=== PATIENT | female | born 1995 | race Caucasian/White ===

== ENCOUNTER 2018-07-14 09:50 | Inpatient (IN) | payer OTHER ==
[2018-07-14 11:13] LABS: BASO % 0.1 % (0.0-1.0); EOS % 0.3 % (0.0-3.0); HEMATOCRIT 29.4 % (36.0-47.0); HEMOGLOBIN 9.6 g/dl (12.0-15.5); IMMATURE GRANULOCYTE % 0.9 % (0-3.0); LYMPH # 1.1 10^3/uL (1.5-6.5); LYMPH % 16.1 % (24.0-44.0); MEAN CORPUSCULAR HEMOGLOBIN 29.3 pg (27.0-33.0); MEAN CORPUSCULAR HGB CONC 32.7 g/dl (32.0-36.5); MEAN CORPUSCULAR VOLUME 89.6 fl (80.0-96.0); MONO # 0.5 10^3/uL (0.0-0.8); MONO % 7.3 % (0.0-5.0); NEUTROPHILS # 5.2 10^3/uL (1.8-7.7); NEUTROPHILS % 75.3 % (36.0-66.0); PLATELET COUNT, AUTOMATED 198 10^3/uL (150-450); RED BLOOD COUNT 3.28 10^6/uL (4.00-5.40); RED CELL DISTRIBUTION WIDTH 16.3 % (11.5-14.5)
[2018-07-14] MEDS: LR 1,000 ML IV (11:41)
[2018-07-14] MEDS: miSOPROStol 50 MCG 1/2 TAB (S0191) PO (12:34)
[2018-07-14] MEDS: miSOPROStol 25 MCG 1/4 TAB (S0191) PO (19:30)
[2018-07-15] MEDS: PROMETHAZINE INJ 25 MG/ML VIAL (J2550) IV (01:10)
[2018-07-15] MEDS: NALBUPHINE HCL 10 MG/ML AMP (J2300) IM (01:11)
[2018-07-15] MEDS: NALBUPHINE HCL 10 MG/ML AMP (J2300) IV (01:11)
[2018-07-15] MEDS: OXYTOCIN DRIP 30 UNITS in APPROPRIATE DILUENT 1 EA IV (07:28)
[2018-07-15] MEDS: LR 1,000 ML IV ×2 (07:28→13:00)
[2018-07-15] MEDS: BUTORPHANOL 2 MG/ML INJ (J0595) IV (12:31)
[2018-07-15] MEDS ORDERED: FENTANYL 2MCG/ML ROPIVACAINE 0.2% IN 0.9% NACL 200ML IVBAG As Ordered (15:16)
[2018-07-15] MEDS: FENTANYL/ROPIVACAINE/NACL BAG 200 ML EPIDURAL (15:47)
[2018-07-15] MEDS ORDERED: diphenhydrAMINE INJ 50MG/ML VIAL (J1200) IV (16:15)
[2018-07-15] MEDS ORDERED: ePHEDrine SULFATE 25 MG/5 ML(5MG/ML) SYRINGE IV (16:15)
[2018-07-15] MEDS ORDERED: NALOXONE INJ 0.4 MG/1 ML VIAL (J2310) IV (16:15)
[2018-07-15] MEDS ORDERED: LACTATED RINGER'S 1000 ML IV (16:15)
[2018-07-15] MEDS ORDERED: EPIDURAL/PCA KEYS XX (16:15)
[2018-07-15] MEDS ORDERED: EPIDURAL COMMENT XX (16:15)
[2018-07-15] MEDS ORDERED: REFRIGERATOR IV KEYS XX (16:15)
[2018-07-15] MEDS ORDERED: ONDANSETRON 4MG/2ML VIAL (J2405) IV (16:15)
[2018-07-16] MEDS: LR 1,000 ML IV ×2 (00:06→10:06)
[2018-07-16] MEDS ORDERED: ACETAMINOPHEN 500 MG TAB As Ordered (00:15)
[2018-07-16] MEDS: ACETAMINOPHEN 500 MG TAB PO (00:18)
[2018-07-16] MEDS ORDERED: BICITRA 30ML SOLN UDC As Ordered (01:57)
[2018-07-16] MEDS ORDERED: ceFAZolin 2 GM/D5W 50 ML IV BAG (J0690 PER 500MG) As Ordered (01:57)
[2018-07-16] MEDS: BICITRA 30ML SOLN UDC PO (02:06)
[2018-07-16] MEDS ORDERED: EPINEPHrine INJ 1 MG/ML 1ML AMP As Ordered (02:10)
[2018-07-16] MEDS ORDERED: OXYTOCIN INJ 10 UNITS/ML VIAL (J2590) As Ordered ×8 (02:10→03:21)
[2018-07-16] MEDS ORDERED: LIDOCAINE PRES-FREE 2% 10ML AMP As Ordered ×2 (02:10)
[2018-07-16] MEDS ORDERED: MORPHINE PRES-FREE INJ 10 MG/10 ML VIAL (J2274) As Ordered (02:24)
[2018-07-16] MEDS ORDERED: dexameTHASONE 4 MG/ML 1ML VIAL (J1100) As Ordered (02:25)
[2018-07-16] MEDS ORDERED: ONDANSETRON 4MG/2ML VIAL (J2405) As Ordered ×2 (02:25→03:30)
[2018-07-16] MEDS ORDERED: MIDAZOLAM INJ 2 MG/2 ML VIAL (J2250) As Ordered ×2 (02:43→03:35)
[2018-07-16] MEDS ORDERED: KETOROLAC 60 MG/2 ML VIAL (J1885) As Ordered (02:53)
[2018-07-16] MEDS ORDERED: KETAMINE HCL 200 MG/20 ML VIAL As Ordered (03:01)
[2018-07-16] MEDS ORDERED: METOCLOPRAMIDE INJ 10MG/2ML VIAL (J2765) IV (03:38)
[2018-07-16] MEDS ORDERED: NALBUPHINE HCL 10 MG/ML AMP (J2300) IV ×2 (03:38→04:45)
[2018-07-16] MEDS ORDERED: NALOXONE INJ 0.4 MG/1 ML VIAL (J2310) IV ×2 (03:38)
[2018-07-16] MEDS ORDERED: ONDANSETRON 4MG/2ML VIAL (J2405) IV ×2 (03:38→04:45)
[2018-07-16] MEDS ORDERED: PHENYLephrine HCL 500 MCG/5 ML (100MCG/ML) SYRINGE (J2370) As Ordered (04:02)
[2018-07-16 04:05] LABS: CORD GAS ABE V -2.8; CORD GAS HCO3 V 22.5 MEQ/L; CORD GAS O2 SAT V 59.4 %; CORD GAS PCO2 V 41.4 mmHg; CORD GAS PH V 7.354 UNITS; CORD GAS PO2 V 25.3 mmHg; CORD GAS SBC V 21.2 MEQ/L; CORD GAS TCO2 V 23.8 MEQ/L
[2018-07-16 04:08] LABS: CORD GAS ABE A -2.1; CORD GAS HCO3 A 25.2 MEQ/L; CORD GAS O2 SAT A 21.4 %; CORD GAS PCO2 A 53.3 mmHg; CORD GAS PH A 7.292 UNITS; CORD GAS PO2 A 13.2 mmHg; CORD GAS TCO2 A 26.8 MEQ/L
[2018-07-16 04:09] LABS: CORD GAS ABE V -2.4; CORD GAS HCO3 V 23.2 MEQ/L; CORD GAS O2 SAT V 62.3 %; CORD GAS PCO2 V 42.8 mmHg; CORD GAS PH V 7.352 UNITS; CORD GAS PO2 V 25.7 mmHg; CORD GAS SBC V 21.6 MEQ/L; CORD GAS TCO2 V 24.5 MEQ/L
[2018-07-16 04:11] LABS: CORD GAS ABE A -1.7; CORD GAS HCO3 A 23.9 MEQ/L; CORD GAS O2 SAT A 63.7 %; CORD GAS PCO2 A 43.6 mmHg; CORD GAS PH A 7.357 UNITS; CORD GAS PO2 A 26.4 mmHg; CORD GAS SBC A 22.2 MEQ/L; CORD GAS TCO2 A 25.3 MEQ/L
[2018-07-16] MEDS ORDERED: LR 1,000 ML IV (04:28)
[2018-07-16] MEDS ORDERED: MEASLES,MUMPS,RUBELLA VACCINE INJ (MMR-II) (90707) SC (04:30)
[2018-07-16] MEDS ORDERED: LOPERAMIDE 2 MG CAP PO (04:30)
[2018-07-16] MEDS: LOPERAMIDE 2 MG CAP PO (04:30)
[2018-07-16] MEDS ORDERED: PERCOCET 5MG/325MG TAB PO (04:30)
[2018-07-16] MEDS: miSOPROStol 200 MCG TAB (S0191) PR (04:30)
[2018-07-16] MEDS: METHYLERGONOVINE MALEATE 0.2 MG TAB PO ×3 (04:30→20:14)
[2018-07-16] MEDS ORDERED: fentaNYL 100 MCG/2 ML INJECTION (J3010) IV (04:45)
[2018-07-16] MEDS ORDERED: miSOPROStol 200 MCG TAB (S0191) As Ordered (06:00)
[2018-07-16] MEDS: DOCUSATE SODIUM 100 MG CAP PO ×2 (10:07→20:14)
[2018-07-16] MEDS: KETOROLAC 30 MG/ML VIAL (J1885) IV ×3 (10:07→20:14)
[2018-07-16 12:04] LABS: HEMATOCRIT 23.7 % (36.0-47.0); HEMOGLOBIN 7.8 g/dl (12.0-15.5); MEAN CORPUSCULAR HEMOGLOBIN 29.1 pg (27.0-33.0); MEAN CORPUSCULAR HGB CONC 32.9 g/dl (32.0-36.5); MEAN CORPUSCULAR VOLUME 88.4 fl (80.0-96.0); PLATELET COUNT, AUTOMATED 157 10^3/uL (150-450); RED BLOOD COUNT 2.68 10^6/uL (4.00-5.40); RED CELL DISTRIBUTION WIDTH 15.9 % (11.5-14.5)
[2018-07-16 12:26] LABS: ALBUMIN 1.7 GM/DL (3.2-5.2); ALBUMIN/GLOBULIN RATIO 0.57 (1.00-1.93); ALKALINE PHOSPHATASE 208 U/L (45-117); ALT/SGPT 14 U/L (12-78); ANION GAP 7 MEQ/L (8-16); AST/SGOT 22 U/L (7-37); BILIRUBIN,TOTAL 0.4 MG/DL (0.2-1.0); BLOOD UREA NITROGEN 6 MG/DL (7-18); CALCIUM LEVEL 8.2 MG/DL (8.5-10.1); CARBON DIOXIDE LEVEL 23 MEQ/L (21-32); CHLORIDE LEVEL 110 MEQ/L (98-107); CREATININE FOR GFR 0.81 MG/DL (0.55-1.30); GLOMERULAR FILTRATION RATE > 60.0 (>60); GLUCOSE, FASTING 111 MG/DL (70-100); POTASSIUM SERUM 3.6 MEQ/L (3.5-5.1); SODIUM LEVEL 140 MEQ/L (136-145); TOTAL PROTEIN 4.7 GM/DL (6.4-8.2)
[2018-07-16] MEDS: PRENATAL VITAMINS CHEWABLE TABLET PO (14:13)
[2018-07-16 20:19] LABS: HEMATOCRIT 25.3 % (36.0-47.0); HEMOGLOBIN 8.2 g/dl (12.0-15.5); MEAN CORPUSCULAR HGB CONC 32.4 g/dl (32.0-36.5); MEAN CORPUSCULAR VOLUME 89.4 fl (80.0-96.0); PLATELET COUNT, AUTOMATED 146 10^3/uL (150-450); RED BLOOD COUNT 2.83 10^6/uL (4.00-5.40); RED CELL DISTRIBUTION WIDTH 15.9 % (11.5-14.5); WHITE BLOOD COUNT 12.2 10^3/uL (4.0-10.0)
[2018-07-17] MEDS: METHYLERGONOVINE MALEATE 0.2 MG TAB PO (03:43)
[2018-07-17] MEDS: IBUPROFEN 800 MG TAB PO ×3 (03:46→20:01)
[2018-07-17] MEDS: PRENATAL VITAMINS CHEWABLE TABLET PO (08:33)
[2018-07-17] MEDS: DOCUSATE SODIUM 100 MG CAP PO ×2 (08:33→20:14)
[2018-07-17] MEDS: PERCOCET 5MG/325MG TAB PO ×2 (12:32→21:26)
[2018-07-17 14:11] LABS: FETAL SCREEN PROF. 1 1
[2018-07-17] MEDS: RHOGAM 300 MCG (1500 IU) INJ (J2790) IM (14:36)
[2018-07-18] MEDS: IBUPROFEN 800 MG TAB PO ×3 (05:40→21:14)
[2018-07-18] MEDS: DOCUSATE SODIUM 100 MG CAP PO ×2 (07:38→21:00)
[2018-07-18] MEDS: PRENATAL VITAMINS CHEWABLE TABLET PO (08:39)
[2018-07-18 09:14] LABS: MEAN CORPUSCULAR HEMOGLOBIN 29.4 pg (27.0-33.0); MEAN CORPUSCULAR HGB CONC 33.5 g/dl (32.0-36.5); MEAN CORPUSCULAR VOLUME 87.7 fl (80.0-96.0); PLATELET COUNT, AUTOMATED 161 10^3/uL (150-450); RED BLOOD COUNT 2.28 10^6/uL (4.00-5.40); RED CELL DISTRIBUTION WIDTH 16.2 % (11.5-14.5); WHITE BLOOD COUNT 9.1 10^3/uL (4.0-10.0)
[2018-07-18 09:29] LABS: HEMOGLOBIN 6.7 g/dl (12.0-15.5)
[2018-07-18] MEDS: ACETAMINOPHEN TAB 650MG DOSE (2X325MG) PO (11:54)
[2018-07-18 12:12] LABS: IMMEDIATE SPIN CROSSMATCH 1 2
[2018-07-18] MEDS: diphenhydrAMINE INJ 50MG/ML VIAL (J1200) IV (12:24)
[2018-07-18] MEDS: PERCOCET 5MG/325MG TAB PO (19:11)
[2018-07-19] MEDS: IBUPROFEN 800 MG TAB PO (05:18)
[2018-07-19] MEDS: PERCOCET 5MG/325MG TAB PO (05:56)
[2018-07-19 06:55] LABS: HEMATOCRIT 24.7 % (36.0-47.0); HEMOGLOBIN 8.2 g/dl (12.0-15.5); MEAN CORPUSCULAR HEMOGLOBIN 29.4 pg (27.0-33.0); MEAN CORPUSCULAR HGB CONC 33.2 g/dl (32.0-36.5); MEAN CORPUSCULAR VOLUME 88.5 fl (80.0-96.0); PLATELET COUNT, AUTOMATED 182 10^3/uL (150-450); RED BLOOD COUNT 2.79 10^6/uL (4.00-5.40); RED CELL DISTRIBUTION WIDTH 16.6 % (11.5-14.5); WHITE BLOOD COUNT 9.3 10^3/uL (4.0-10.0)
[2018-07-19] MEDS: DOCUSATE SODIUM 100 MG CAP PO (08:51)
[2018-07-19] MEDS: PRENATAL VITAMINS CHEWABLE TABLET PO (08:51)
== END 2018-07-19 11:50 | disposition home or self-care (01) | DRG 766 ==
LOC: M LDI 09:50 → M OBS 07-16 03:09 → M ICU 07-16 09:05
PROVIDERS: Obstetrics & Gynecology
PROC: 10D00Z1 Extraction of Products of Conception, Low, Open Approach (ICD-10-PCS; principal; 2018-07-16 02:10)
PROC: 3E0P7GC Introduction of Other Therapeutic Substance into Female Reproductive, Via Natural or Artificial Opening (ICD-10-PCS; 2018-07-16 02:10)
PROC: 30233N1 Transfusion of Nonautologous Red Blood Cells into Peripheral Vein, Percutaneous Approach (ICD-10-PCS; 2018-07-16 02:10)
DX: O30.043 Twin pregnancy, dichorionic/diamniotic, third trimester (principal); O99.02 Anemia complicating childbirth; Z3A.38 38 weeks gestation of pregnancy; D64.9 Anemia, unspecified; J98.8 Other specified respiratory disorders; O99.53 Diseases of the respiratory system complicating the puerperium; O62.3 Precipitate labor; Z37.0 Single live birth; Z37.2 Twins, both liveborn; O76 Abnormality in fetal heart rate and rhythm complicating labor and delivery

== ENCOUNTER 2018-07-28 17:12 | Emergency (ER) | payer OTHER ==
[2018-07-28 19:44] LABS: BASO % 0.3 % (0.0-1.0); EOS # 0.1 10^3/uL (0.0-0.50); EOS % 0.5 % (0.0-3.0); HEMATOCRIT 32.4 % (36.0-47.0); HEMOGLOBIN 10.4 g/dl (12.0-15.5); IMMATURE GRANULOCYTE % 0.9 % (0-3.0); LYMPH # 1.6 10^3/uL (1.5-6.5); LYMPH % 13.2 % (24.0-44.0); MEAN CORPUSCULAR HEMOGLOBIN 28.8 pg (27.0-33.0); MEAN CORPUSCULAR HGB CONC 32.1 g/dl (32.0-36.5); MEAN CORPUSCULAR VOLUME 89.8 fl (80.0-96.0); MONO # 0.7 10^3/uL (0.0-0.8); MONO % 5.7 % (0.0-5.0); NEUTROPHILS # 9.7 10^3/uL (1.8-7.7); NEUTROPHILS % 79.4 % (36.0-66.0); PLATELET COUNT, AUTOMATED 396 10^3/uL (150-450); RED BLOOD COUNT 3.61 10^6/uL (4.00-5.40); RED CELL DISTRIBUTION WIDTH 15.2 % (11.5-14.5); WHITE BLOOD COUNT 12.2 10^3/uL (4.0-10.0)
[2018-07-28 20:29] LABS: ANION GAP 6 MEQ/L (8-16); BLOOD UREA NITROGEN 8 MG/DL (7-18); CALCIUM LEVEL 8.9 MG/DL (8.5-10.1); CARBON DIOXIDE LEVEL 29 MEQ/L (21-32); CHLORIDE LEVEL 111 MEQ/L (98-107); CREATININE FOR GFR 0.72 MG/DL (0.55-1.30); GLOMERULAR FILTRATION RATE > 60.0 (>60); GLUCOSE, FASTING 97 MG/DL (70-100); POTASSIUM SERUM 3.7 MEQ/L (3.5-5.1); SODIUM LEVEL 146 MEQ/L (136-145)
== END 2018-07-28 22:24 | disposition home or self-care (01) ==
LOC: M ED 17:12
DX: O72.2 Delayed and secondary postpartum hemorrhage (principal); R93.5 Abnormal findings on diagnostic imaging of other abdominal regions, including retroperitoneum
CPT/HCPCS: 76856